=== PATIENT | female | born 1990 | race Caucasian/White ===

== ENCOUNTER → 2016-08-05 | Outpatient (CLI) | payer OTHER ==
--- NOTE | 2016-08-05 17:44 | REP ---
MRI BRAIN WITHOUT CONTRAST: HISTORY: Encephalocele. There are no areas of abnormal signal intensity in the brain. There is no intraparenchymal hemorrhage, infarct, mass or midline shift. The ventricular system is normal in appearance. There is no extracerebral collection. There is no encephalocele. Mucosal thickening is present in the left ethmoid and maxillary sinuses. IMPRESSION: There is no intracranial lesion. Signed by Sheng Machuca MD 08/06/2016 08:30 A
== END ==
LOC: M RAD 14:13
PROVIDERS: ATTEND Specialist
DX: R51 Headache (principal)

== ENCOUNTER → 2016-09-05 | Day surgery (SDC) | payer OTHER ==
[~2016-09-05] VITALS: Ht 170.2 cm; Wt 72.6 kg
[~2016-09-05] MED LIST: ALLE180T33 PO; AZEL0.1S3; CEFD1CAP8 PO; EPINEPHrine 1MG/ML INJ 30ML MD-VIAL As Ordered ONE; EPINEPHrine INJ 1 MG/ML 1ML VIAL/AMP As Ordered ONE; EPINEPHrine INJ 1 MG/ML 1ML VIAL/AMP XX ONE; FIOR1CAP PO; FLON1SPR; GLYCOPYRROLATE INJ 0.2 MG/ML 2 ML VIAL As Ordered ONE; HYDROmorphone HCL 2 MG/ML 1ML VIAL (J1170) As Ordered ONE; IBUPROFEN 800 MG TAB PO SCH; LIDOCAINE 1% MDV 20ML VIAL As Ordered ONE; LIDOCAINE 1% MDV 20ML VIAL XX ONE; LIDOCAINE 2% INJ 100 MG/5 ML SDV (FOR ANES.) As Ordered ONE; LIDOCAINE W/EPINEPHRINE 1% 20ML VIAL As Ordered ONE; LIDOCAINE W/EPINEPHRINE 1% 20ML VIAL XX ONE; LR 1,000 ML IV SCH; MEPERIDINE INJ 25 MG/ML VIAL (J2175) IV PRN; METOCLOPRAMIDE INJ 10MG/2ML VIAL (J2765) IV PRN; MIDAZOLAM INJ 2 MG/2 ML VIAL (J2250) As Ordered ONE; NEOSTIGMINE 1MG/ML 5 ML SYRINGE (J2710) As Ordered ONE; ONDANSETRON 4MG/2ML VIAL (J2405) As Ordered ONE; ONDANSETRON 4MG/2ML VIAL (J2405) IV PRN; OXYMETAZOLINE NASAL SPRAY (AFRIN) As Ordered ONE; OXYMETAZOLINE NASAL SPRAY (AFRIN) XX ONE; PERCOCET 5MG/325MG TAB PO PRN; PROPOFOL 200 MG/20 ML VIAL As Ordered ONE; ROCURONIUM BROMIDE 50 MG/5 ML VIAL As Ordered ONE; SCOPOLAMINE 1.5 MG TRANSDERMAL As Ordered ONE; SCOPOLAMINE 1.5 MG TRANSDERMAL TOP ONE; SEVOFLURANE INHAL SOLN 250 ML BTL As Ordered ONE; TRAZ50TA4 PO; ZOFR4SOL PO; dexameTHASONE 4 MG/ML 1ML VIAL (J1100) As Ordered ONE; fentaNYL 100 MCG/2 ML INJECTION (J3010) IV PRN; fentaNYL 250 MCG/5 ML INJECTION (J3010) As Ordered ONE
[2016-09-05 11:59] LABS: CONTROL LINE UCG INT CTR LINE PRESENT
[2016-09-05 18:20] VITALS: BP 137/88
--- NOTE | 2016-09-07 12:45 | RO ---
DATE OF PROCEDURE: 09/05/2016 PREOPERATIVE DIAGNOSIS: Left chronic maxillary ethmoid sinusitis. Deviated septum. POSTOPERATIVE DIAGNOSIS: Left chronic maxillary ethmoid sinusitis. Deviated septum. PROCEDURE: Septoplasty. Left endoscopic total ethmoidectomy with sphenoidotomy and left maxillary antrostomy resection of nasal polyps. SURGEON: Dr. Austin Barone [employer]ING SUPERVISOR: ANESTHESIA: INDICATIONS: This is a 26 year old with a history of left sided nasal congestion, obstruction and purulent rhinorrhea that has been going on for almost a year. CT scanning demonstrated marked opacification of the left ethmoid complex as well as calcific stippling in that side of the nose. There was also a significant left nasal septal spur. PROCEDURE: Satisfactory general endotracheal anesthesia was administered. Pharyngeal pack placed in the nose, we prepared him for surgery by placing cotton-soaked pledgets with Afrin solution into the nasal cavity bilaterally. 1% Xylocaine with 1:100,000 epinephrine was used to inject the nasal septum. First septoplasty was performed. A Hardeep incision made on the left side of the nasal septum. Mucoperichondrial envelope developed. The junction of the bone and cartilaginous septum was and elevated and an envelope created on the right side of the septum. The perpendicular plate was taken down with the scissors above and scissors below. A vomerine spur was also removed. The caudal cartilage was mobilized by taking a strip of cartilage from the floor of the nose. A central segment of cartilaginous septum was then resected. This allowed the septal contents to return to the midline. The incision was closed using interrupted #5-0 chromic suture. #4-0 chromic sutures were placed in back and forth fashion through the two layers of mucoperichondrium. Next, endoscopic sinus surgery was started with the 0 degrees telescope and the microdebrider as the primary instrument. There was gross polyp disease seen in the left side of the nose both medially and laterally to the middle turbinate. This gross polyp disease was first resected to restore the normal landmarks of the middle meatus. Then using microdebrider the uncinate process was taken down. The ethmoidal bulla was perforated and entered and partially resected. Large thick glue-like green crusts were removed and sent for culture to rule out a fungal sinusitis. The ethmoidal dissection continued by working posteriorly to anteriorly. The ground lamella was perforated and once the posterior ethmoid cells were entered the landmarks of the lamina papyracea and skull base were identified. Dissection continued from posterior anteriorly removing inflammatory tissue as well as large inspissated crust. In the nasofrontal recess, the uncinate process was taken down superiorly. Supraorbital ethmoid cell was opened and agger nasi cell was opened to enlarge this area. Again, some crusts were easily removed from this area and it looked quite clean once this was done. Ethmoid recess polyps were removed. The sphenoid sinus ostia was identified and it was enlarged entering into the posterior ethmoid dissection. At the completion of dissection, the posterior limits of the dissection were approximately 8.5 to 9 cm from the nasal spine. Next, the natural maxillary sinus ostia was identified. It was opened widely using a combination of side biting and up biting forceps. The maxillary sinus mucosa was normal. General pledgets were placed into the ethmoid sinus to allow hemostasis for 5 minutes. When these were removed, there was no significant bleeding. The Propel system was inserted into t he dissected area and expanded in good position. Then, Sinu-Foam was used to fill the interior of the Propel band. Pharyngeal pack was removed and throat suctioned. The patient was awakened, extubated and sent to recovery in satisfactory condition. She will be discharged home with doxycycline 100 mg twice a day and Percocet for pain. She will be seen back in the office in one week.
== END | disposition home or self-care (01) ==
LOC: M SDC 11:17
PROVIDERS: ATTEND Specialist
DX: J32.0 Chronic maxillary sinusitis (principal); J34.2 Deviated nasal septum; J32.2 Chronic ethmoidal sinusitis; J33.0 Polyp of nasal cavity; F41.9 Anxiety disorder, unspecified; Z91.040 Latex allergy status; Z91.041 Radiographic dye allergy status; Z79.899 Other long term (current) drug therapy
CPT/HCPCS: 30520; 31255; 31267; 31288; 84703; 87070; 87075; 87102; 87186; 88300; C2625; J1100; J1170; J2250; J2405; J2710; J3010

== ENCOUNTER 2016-09-10 20:29 | Emergency (ER) | payer OTHER ==
[~2016-09-10 20:29] MED LIST changes: -EPINEPHrine 1MG/ML INJ 30ML MD-VIAL As Ordered ONE; -EPINEPHrine INJ 1 MG/ML 1ML VIAL/AMP As Ordered ONE; -EPINEPHrine INJ 1 MG/ML 1ML VIAL/AMP XX ONE; -GLYCOPYRROLATE INJ 0.2 MG/ML 2 ML VIAL As Ordered ONE; -HYDROmorphone HCL 2 MG/ML 1ML VIAL (J1170) As Ordered ONE; -IBUPROFEN 800 MG TAB PO SCH; -LIDOCAINE 1% MDV 20ML VIAL As Ordered ONE; -LIDOCAINE 1% MDV 20ML VIAL XX ONE; -LIDOCAINE 2% INJ 100 MG/5 ML SDV (FOR ANES.) As Ordered ONE; -LIDOCAINE W/EPINEPHRINE 1% 20ML VIAL As Ordered ONE; -LIDOCAINE W/EPINEPHRINE 1% 20ML VIAL XX ONE; -LR 1,000 ML IV SCH; -MEPERIDINE INJ 25 MG/ML VIAL (J2175) IV PRN; -METOCLOPRAMIDE INJ 10MG/2ML VIAL (J2765) IV PRN; -MIDAZOLAM INJ 2 MG/2 ML VIAL (J2250) As Ordered ONE; -NEOSTIGMINE 1MG/ML 5 ML SYRINGE (J2710) As Ordered ONE; -ONDANSETRON 4MG/2ML VIAL (J2405) As Ordered ONE; -ONDANSETRON 4MG/2ML VIAL (J2405) IV PRN; -OXYMETAZOLINE NASAL SPRAY (AFRIN) As Ordered ONE; -OXYMETAZOLINE NASAL SPRAY (AFRIN) XX ONE; -PERCOCET 5MG/325MG TAB PO PRN; -PROPOFOL 200 MG/20 ML VIAL As Ordered ONE; -ROCURONIUM BROMIDE 50 MG/5 ML VIAL As Ordered ONE; -SCOPOLAMINE 1.5 MG TRANSDERMAL As Ordered ONE; -SCOPOLAMINE 1.5 MG TRANSDERMAL TOP ONE; -SEVOFLURANE INHAL SOLN 250 ML BTL As Ordered ONE; -dexameTHASONE 4 MG/ML 1ML VIAL (J1100) As Ordered ONE; -fentaNYL 100 MCG/2 ML INJECTION (J3010) IV PRN; -fentaNYL 250 MCG/5 ML INJECTION (J3010) As Ordered ONE
[2016-09-10] MEDS ORDERED: MAGNESIUM CITRATE 300 ML BTL As Ordered ONE (22:22)
[2016-09-10] MEDS ORDERED: GLYCERIN ADULT SUPP As Ordered ONE (22:22)
--- NOTE | 2016-09-10 22:28 | EDDOCDS ---
Physician Documentation [facility] Name: Amparo Casey Age: 26 yrs Sex: Female : 1990 Arrival Date: 09/10/2016 Time: 20:29 Bed I5 / M5 Private MD: Mariana Dumont A Disposition: 09/10/16 22:16 Discharged to Home/Self Care. Impression: Constipation, Generalized abdominal pain. - Condition is Stable. - Discharge Instructions: Abdominal Pain, Adult, Constipation, Adult. - Medication Reconciliation, Local Pharmacy Hours form. - Follow up: Mariana Dumont; When: Call to arrange an appointment; Reason: Recheck today's complaints, Continuance of care. - Problem is new. - Symptoms are unchanged. Historical: - Allergies: Latex; IV Dye; IODINEIODINE CONTAINING; - Home Meds: 1. Miralax 17 gram Oral pwpk 1 packet once daily 2. Dulcolax (bisacodyl) 10 mg Rectal supp 1 suppository once daily 3. Ex-Lax Maximum Strength 25 mg oral tab 2 tabs once daily - PMHx: none; - PSHx: Sinus Surgery; - Social history: Smoking status: Patient states was never smoker of tobacco. No barriers to communication noted, The patient speaks fluent Setswana, Speaks appropriately for age. - Family history: Not pertinent. - : The pt / caregiver states he / she is not on anticoagulants. Home medication list is obtained from the patient. - Exposure Risk Screening:: None identified. Vital Signs: 09/10 20:31 BP 145 / 87; Pulse 107; Resp 16; Temp 97.8(O); Pulse Ox 100% on R/A; Weight 73.48 kg / lr2 162 lbs (R); Height 5 ft. 7 in. (170.18 cm) (R); Pain 6/10; 22:21 BP 130 / 74; Pulse 100; Resp 18; Temp 99.6; Pulse Ox 99% ; ajs 20:31 Body Mass Index 25.37 (73.48 kg, 170.18 cm) lr2 MDM: 22:15 Glycerin (Adult) Suppository 2 supp MD once; please given to go home ordered. mo1 22:15 Magnesium Citrate Liquid 300 ml PO once; Dispense home with pt. ordered. mo1 Administered Medications: 22:26 Drug: Glycerin (Adult) 2 supp [glycerin (adult) rectal suppository (2 supp)] Route: MD; kas2 22:26 Drug: Magnesium Citrate 300 ml [magnesium citrate oral solution (300 mL)] Route: PO; kas2 Signatures: Zenon Obrien, RN RN mlb1 Zenon Prater PA PA mo1 Marily Hammer RN RN kas2 MTDD
--- NOTE | 2016-09-10 22:28 | EDDOCDS ---
Nurse's Notes [facility] Name: Amparo Casey Age: 26 yrs Sex: Female : 1990 Arrival Date: 09/10/2016 Time: 20:29 Bed I5 / M5 Private MD: Mariana Dumont A Diagnosis: Constipation;Generalized abdominal pain Presentation: 09/10 20:35 Presenting complaint: Patient states: Sinus last , no BM since last Friday mlb1 reports abdominal pain and increased pain when trying to have a BM. Risk factors: the patient reports no vaginal bleeding. Adult Sepsis Screening: The patient does not have new or worsening altered mentation. Patient's respiratory rate is less than 22. Systolic blood pressure is greater than 100. Patient has a qSOFA score of 0- Negative Sepsis Screen. Suicide/Homicide risk assessment- the patient denies having any suicidal and/or homicidal ideations and does not present with any other emotional, behavioral or mental health complaints. Status: The patient is a dependent. Transition of care: patient was not received from another setting of care. 20:35 Acuity: MAIKOL Level 4 mlb1 20:35 Method Of Arrival: Walkin/Carried/Asstd mlb1 Triage Assessment: 20:40 General: Appears in no apparent distress, comfortable, Behavior is appropriate for age, mlb1 cooperative. Pain: Location: right lower quadrant and left lower quadrant Pain currently is 5 out of 10 on a pain scale. 22:27 Pt Declines HIV testing. kas2 Historical: - Allergies: Latex; IV Dye; IODINEIODINE CONTAINING; - Home Meds: 1. Miralax 17 gram Oral pwpk 1 packet once daily 2. Dulcolax (bisacodyl) 10 mg Rectal supp 1 suppository once daily 3. Ex-Lax Maximum Strength 25 mg oral tab 2 tabs once daily - PMHx: none; - PSHx: Sinus Surgery; - Social history: Smoking status: Patient states was never smoker of tobacco. No barriers to communication noted, The patient speaks fluent Lithuanian, Speaks appropriately for age. - Family history: Not pertinent. - : The pt / caregiver states he / she is not on anticoagulants. Home medication list is obtained from the patient. - Exposure Risk Screening:: None identified. Screenin:09 Screening information is obtained from the patient. Fall risk: No risks identified. kas2 Assistance ADL's: requires no assistance with activities of daily living. Abuse/DV Screen: The patient / caregiver reports he/she is: not in a situation that causes fear, pain or injury. Nutritional screening: No deficits noted. Advance Directives: Currently, there is no health care proxy. There is no active DNR order. There is no living will. There is no Power of Ham Smoker. home support is adequate. Assessment: 21:30 General: Appears in no apparent distress, uncomfortable, well nourished, well groomed, kas2 Behavior is appropriate for age, cooperative. Pain: Location: abdomen and left lower quadrant and right lower quadrant Pain currently is 8 out of 10 on a pain scale. Neurological: Level of Consciousness is awake, alert, Oriented to person, place, time. Cardiovascular: Rhythm is regular. Respiratory: Airway is patent Respiratory effort is even, unlabored, Respiratory pattern is regular, symmetrical, Breath sounds are clear bilaterally. GI: Abdomen is flat, non- distended Bowel sounds present X 4 quads. Abd is soft and non tender X 4 quads. Derm: Skin is intact, Skin is dry, Skin is pink, warm & dry. Skin temperature is warm. 22:26 General: Appears in no apparent distress, Behavior is appropriate for age, cooperative. kas2 Pain: Location: abdomen and left lower quadrant and right lower quadrant Pain currently is 4 out of 10 on a pain scale. Neurological: Level of Consciousness is awake, alert, Oriented to person, place, time. Cardiovascular: Rhythm is regular. Respiratory: Airway is patent Respiratory effort is even, unlabored, Respiratory pattern is regular, symmetrical. GI: Abdomen is flat, non- distended. Derm: Skin is intact, Skin is dry, Skin is pink, warm & dry. Skin temperature is warm. Vital Signs: 20:31 BP 145 / 87; Pulse 107; Resp 16; Temp 97.8(O); Pulse Ox 100% on R/A; Weight 73.48 kg lr2 (R); Height 5 ft. 7 in. (170.18 cm) (R); Pain 6/10; 22:21 BP 130 / 74; Pulse 100; Resp 18; Temp 99.6; Pulse Ox 99% ; ajs 20:31 Body Mass Index 25.37 (73.48 kg, 170.18 cm) lr2 Vitals: 20:31 Log In Time: September 10, 2016 at 20:12. lr2 ED Course: 20:30 Patient visited by Gisele Donald. lr2 20:30 Patient moved to Waiting lr2 20:34 Mariana Dumont is Private Physician. lr2 20:34 Patient moved to Pre RCE lr2 20:35 Patient visited by Zenon Obrien RN. mlb1 20:38 Triage Initiated mlb1 21:17 Patient moved to Triage 2 ms18 21:29 Zenon Prater PA is PHCP. mo1 21:29 Brooks Carney MD is Attending Physician. mo1 21:42 Patient visited by Zenon Prater PA. mo1 21:48 Patient moved to I5 / M5 [facility] 22:09 No IV's were initiated during this patient's visit. Assisted Provider with fecal kas2 impaction. 22:10 Patient visited by Marily Hammer RN. kas2 22:16 Mariana Dumont is Referral Physician. mo1 22:22 Patient visited by Adrianna Horne. [facility] 22:28 The patient / caregiver is instructed regarding the plan of care and ED course. kas2 Administered Medications: 22:26 Drug: Glycerin (Adult) 2 supp [glycerin (adult) rectal suppository (2 supp)] Route: IA; kas2 22:26 Drug: Magnesium Citrate 300 ml [magnesium citrate oral solution (300 mL)] Route: PO; kas2 Order Results: There are currently no results for this order. Outcome: 22:16 Discharge ordered by Provider. mo1 22:27 Discharge Assessment: patient administered narcotics - no. The following High Risk [facility] Discharge criteria are identified: None. Discharged to home ambulatory, with significant other. Condition: good Condition: stable Condition: improved. No special radiology studies were completed. Property :Personal belongings accompany Pt. 22:28 Patient left the ED. [facility] Signatures: Amparo Broderick RN RN [facility] Zenon Obrien RN RN [facility] Adrianna Horne Michael, PA PA mo1 Margaux Hammer RN RN ms18 Marily Hammer RN RN kas2 Gisele Donald lr2 MTDD
--- NOTE | 2016-09-12 23:29 | EDDOCDS ---
Nurse's Notes [facility] Name: Amparo Casey Age: 26 yrs Sex: Female : 1990 Arrival Date: 09/10/2016 Time: 20:29 Bed I5 / M5 Private MD: Mariana Dumont A Diagnosis: Constipation;Generalized abdominal pain Presentation: 09/10 20:35 Presenting complaint: Patient states: Sinus last , no BM since last Friday mlb1 reports abdominal pain and increased pain when trying to have a BM. Risk factors: the patient reports no vaginal bleeding. Adult Sepsis Screening: The patient does not have new or worsening altered mentation. Patient's respiratory rate is less than 22. Systolic blood pressure is greater than 100. Patient has a qSOFA score of 0- Negative Sepsis Screen. Suicide/Homicide risk assessment- the patient denies having any suicidal and/or homicidal ideations and does not present with any other emotional, behavioral or mental health complaints. Status: The patient is a dependent. Transition of care: patient was not received from another setting of care. 20:35 Acuity: MAIKOL Level 4 mlb1 20:35 Method Of Arrival: Walkin/Carried/Asstd mlb1 Triage Assessment: 20:40 General: Appears in no apparent distress, comfortable, Behavior is appropriate for age, mlb1 cooperative. Pain: Location: right lower quadrant and left lower quadrant Pain currently is 5 out of 10 on a pain scale. 22:27 Pt Declines HIV testing. kas2 Historical: - Allergies: Latex; IV Dye; IODINEIODINE CONTAINING; - Home Meds: 1. Miralax 17 gram Oral pwpk 1 packet once daily 2. Dulcolax (bisacodyl) 10 mg Rectal supp 1 suppository once daily 3. Ex-Lax Maximum Strength 25 mg oral tab 2 tabs once daily - PMHx: none; - PSHx: Sinus Surgery; - Social history: Smoking status: Patient states was never smoker of tobacco. No barriers to communication noted, The patient speaks fluent Khmer, Speaks appropriately for age. - Family history: Not pertinent. - : The pt / caregiver states he / she is not on anticoagulants. Home medication list is obtained from the patient. - Exposure Risk Screening:: None identified. Screenin:09 Screening information is obtained from the patient. Fall risk: No risks identified. kas2 Assistance ADL's: requires no assistance with activities of daily living. Abuse/DV Screen: The patient / caregiver reports he/she is: not in a situation that causes fear, pain or injury. Nutritional screening: No deficits noted. Advance Directives: Currently, there is no health care proxy. There is no active DNR order. There is no living will. There is no Power of Button Breaker Operator. home support is adequate. Assessment: 21:30 General: Appears in no apparent distress, uncomfortable, well nourished, well groomed, kas2 Behavior is appropriate for age, cooperative. Pain: Location: abdomen and left lower quadrant and right lower quadrant Pain currently is 8 out of 10 on a pain scale. Neurological: Level of Consciousness is awake, alert, Oriented to person, place, time. Cardiovascular: Rhythm is regular. Respiratory: Airway is patent Respiratory effort is even, unlabored, Respiratory pattern is regular, symmetrical, Breath sounds are clear bilaterally. GI: Abdomen is flat, non- distended Bowel sounds present X 4 quads. Abd is soft and non tender X 4 quads. Derm: Skin is intact, Skin is dry, Skin is pink, warm & dry. Skin temperature is warm. 22:26 General: Appears in no apparent distress, Behavior is appropriate for age, cooperative. kas2 Pain: Location: abdomen and left lower quadrant and right lower quadrant Pain currently is 4 out of 10 on a pain scale. Neurological: Level of Consciousness is awake, alert, Oriented to person, place, time. Cardiovascular: Rhythm is regular. Respiratory: Airway is patent Respiratory effort is even, unlabored, Respiratory pattern is regular, symmetrical. GI: Abdomen is flat, non- distended. Derm: Skin is intact, Skin is dry, Skin is pink, warm & dry. Skin temperature is warm. Vital Signs: 20:31 BP 145 / 87; Pulse 107; Resp 16; Temp 97.8(O); Pulse Ox 100% on R/A; Weight 73.48 kg lr2 (R); Height 5 ft. 7 in. (170.18 cm) (R); Pain 6/10; 22:21 BP 130 / 74; Pulse 100; Resp 18; Temp 99.6; Pulse Ox 99% ; ajs 20:31 Body Mass Index 25.37 (73.48 kg, 170.18 cm) lr2 Vitals: 20:31 Log In Time: September 10, 2016 at 20:12. lr2 ED Course: 20:30 Patient visited by Gisele Donald. lr2 20:30 Patient moved to Waiting lr2 20:34 Mariana Dumont is Private Physician. lr2 20:34 Patient moved to Pre RCE lr2 20:35 Patient visited by Zenon Obrien RN. mlb1 20:38 Triage Initiated mlb1 21:17 Patient moved to Triage 2 ms18 21:29 Zenon Prater PA is PHCP. mo1 21:29 Brooks Carney MD is Attending Physician. mo1 21:42 Patient visited by Zenon Prater PA. mo1 21:48 Patient moved to I5 / M5 [facility] 22:09 No IV's were initiated during this patient's visit. Assisted Provider with fecal kas2 impaction. 22:10 Patient visited by Marily Hammer RN. kas2 22:16 Mariana Dumont is Referral Physician. mo1 22:22 Patient visited by Adrianna Horne. ajs 22:28 The patient / caregiver is instructed regarding the plan of care and ED course. kas2 22:30 Patient visited by Macarena Sesay, Reg. ks16 22:30 [facility] Payment Agreement was scanned into [employer] and attached to record. [facility] 09/11 13:55 T-Sheet-- Draft Copy was scanned into [employer] and attached to record. gb Administered Medications: 09/10 22:26 Drug: Glycerin (Adult) 2 supp [glycerin (adult) rectal suppository (2 supp)] Route: MN; kas2 22:26 Drug: Magnesium Citrate 300 ml [magnesium citrate oral solution (300 mL)] Route: PO; kas2 Order Results: There are currently no results for this order. Outcome: 22:16 Discharge ordered by Provider. mo1 22:27 Discharge Assessment: patient administered narcotics - no. The following High Risk [facility] Discharge criteria are identified: None. Discharged to home ambulatory, with significant other. Condition: good Condition: stable Condition: improved. No special radiology studies were completed. Property :Personal belongings accompany Pt. 22:28 Patient left the ED. [facility] Signatures: Amparo Broderick RN RN mcp Barnhardt, Gloria, Reg Reg gb Widen, Zenon B, RN RN mlb1 Adrianna Horne Michael, PA PA mo1 Margaux Hammer RN RN ms18 Macarena Sesay, [facility] ks16 Marily Hammer RN RN erica2 Gisele Donald2 Chart Complete MTDD
--- NOTE | 2016-09-12 23:29 | EDDOCDS ---
Physician Documentation [facility] Name: Amparo Casey Age: 26 yrs Sex: Female : 1990 Arrival Date: 09/10/2016 Time: 20:29 Bed I5 / M5 Private MD: Mariana Dumont A Disposition: 09/10/16 22:16 Discharged to Home/Self Care. Impression: Constipation, Generalized abdominal pain. - Condition is Stable. - Discharge Instructions: Abdominal Pain, Adult, Constipation, Adult. - Medication Reconciliation, Local Pharmacy Hours form. - Family Work Release (09/10/16 22:29). mo1 - Follow up: Mariana Dumont; When: Call to arrange an appointment; Reason: Recheck today's complaints, Continuance of care. - Problem is new. - Symptoms are unchanged. Historical: - Allergies: Latex; IV Dye; IODINEIODINE CONTAINING; - Home Meds: 1. Miralax 17 gram Oral pwpk 1 packet once daily 2. Dulcolax (bisacodyl) 10 mg Rectal supp 1 suppository once daily 3. Ex-Lax Maximum Strength 25 mg oral tab 2 tabs once daily - PMHx: none; - PSHx: Sinus Surgery; - Social history: Smoking status: Patient states was never smoker of tobacco. No barriers to communication noted, The patient speaks fluent Cape Verdean, Speaks appropriately for age. - Family history: Not pertinent. - : The pt / caregiver states he / she is not on anticoagulants. Home medication list is obtained from the patient. - Exposure Risk Screening:: None identified. Vital Signs: 09/10 20:31 BP 145 / 87; Pulse 107; Resp 16; Temp 97.8(O); Pulse Ox 100% on R/A; Weight 73.48 kg / lr2 162 lbs (R); Height 5 ft. 7 in. (170.18 cm) (R); Pain 6/10; 22:21 BP 130 / 74; Pulse 100; Resp 18; Temp 99.6; Pulse Ox 99% ; ajs 20:31 Body Mass Index 25.37 (73.48 kg, 170.18 cm) lr2 MDM: 22:15 Glycerin (Adult) Suppository 2 supp OH once; please given to go home ordered. mo1 22:15 Magnesium Citrate Liquid 300 ml PO once; Dispense home with pt. ordered. mo1 22:30 [facility] Payment Agreement was scanned into [employer] and attached to record. va: Financial registration complete. [facility] 09/11 13:55 T-Sheet-- Draft Copy was scanned into [employer] and attached to record. gb Administered Medications: 09/10 22:26 Drug: Glycerin (Adult) 2 supp [glycerin (adult) rectal suppository (2 supp)] Route: OH; kas2 22:26 Drug: Magnesium Citrate 300 ml [magnesium citrate oral solution (300 mL)] Route: PO; kas2 Signatures: Tessa Carranza, Reg Reg gb Zenon Obrien, RN RN mlb1 Zenon Prater PA PA mo1 Macarena Sesay, Reg Reg ks16 Marily Hammer,RN RN kas2 The chart was reviewed and I authenticate all verbal orders and agree with the evaluation and treatment provided.Attachments: :30 [facility] Payment Agreement 09/11 13:55 T-Sheet-- Draft Copy gb Chart Complete MTDD
--- NOTE | 2016-09-12 23:29 | EDDOCDS ---
Physician Documentation [facility] Name: Amparo Casey Age: 26 yrs Sex: Female : 1990 Arrival Date: 09/10/2016 Time: 20:29 Bed I5 / M5 Private MD: Mariana Dumont A Disposition: 09/10/16 22:16 Discharged to Home/Self Care. Impression: Constipation, Generalized abdominal pain. - Condition is Stable. - Discharge Instructions: Abdominal Pain, Adult, Constipation, Adult. - Medication Reconciliation, Local Pharmacy Hours form. - Family Work Release (09/10/16 22:29). mo1 - Follow up: Mariana Dumont; When: Call to arrange an appointment; Reason: Recheck today's complaints, Continuance of care. - Problem is new. - Symptoms are unchanged. Historical: - Allergies: Latex; IV Dye; IODINEIODINE CONTAINING; - Home Meds: 1. Miralax 17 gram Oral pwpk 1 packet once daily 2. Dulcolax (bisacodyl) 10 mg Rectal supp 1 suppository once daily 3. Ex-Lax Maximum Strength 25 mg oral tab 2 tabs once daily - PMHx: none; - PSHx: Sinus Surgery; - Social history: Smoking status: Patient states was never smoker of tobacco. No barriers to communication noted, The patient speaks fluent [place]ron[place], Speaks appropriately for age. - Family history: Not pertinent. - : The pt / caregiver states he / she is not on anticoagulants. Home medication list is obtained from the patient. - Exposure Risk Screening:: None identified. Vital Signs: 09/10 20:31 BP 145 / 87; Pulse 107; Resp 16; Temp 97.8(O); Pulse Ox 100% on R/A; Weight 73.48 kg / lr2 162 lbs (R); Height 5 ft. 7 in. (170.18 cm) (R); Pain 6/10; 22:21 BP 130 / 74; Pulse 100; Resp 18; Temp 99.6; Pulse Ox 99% ; ajs 20:31 Body Mass Index 25.37 (73.48 kg, 170.18 cm) lr2 MDM: 22:15 Glycerin (Adult) Suppository 2 supp ND once; please given to go home ordered. mo1 22:15 Magnesium Citrate Liquid 300 ml PO once; Dispense home with pt. ordered. mo1 22:30 [facility] Payment Agreement was scanned into [employer] and attached to record. vt: Financial registration complete. [facility] 09/11 13:55 T-Sheet-- Draft Copy was scanned into [employer] and attached to record. gb Administered Medications: 09/10 22:26 Drug: Glycerin (Adult) 2 supp [glycerin (adult) rectal suppository (2 supp)] Route: ND; kas2 22:26 Drug: Magnesium Citrate 300 ml [magnesium citrate oral solution (300 mL)] Route: PO; kas2 Signatures: Tessa Carranza, Reg Reg gb Zenon Obrien, RN RN [id number] Zenon Prater PA PA mo1 Macarena Sesay, Reg Reg [id number] Marily Hammer,RN RN kas2 The chart was reviewed and I authenticate all verbal orders and agree with the evaluation and treatment provided.Attachments: :30 [facility] Payment Agreement 09/11 13:55 T-Sheet-- Draft Copy gb Chart Complete MTDD
== END 2016-09-10 22:28 | disposition home or self-care (01) ==
LOC: M ED 20:29
DX: K59.00 Constipation, unspecified (principal); R11.2 Nausea with vomiting, unspecified; Z79.899 Other long term (current) drug therapy; Z91.041 Radiographic dye allergy status; Z88.8 Allergy status to other drugs, medicaments and biological substances; Z91.040 Latex allergy status

== ENCOUNTER 2017-04-15 23:44 | Emergency (ER) | payer OTHER ==
[~2017-04-15] VITALS: Ht 170.2 cm; Wt 70.5 kg
[~2017-04-15 23:44] MED LIST changes: +TRAZ50TA11 PO; -TRAZ50TA4 PO
[2017-04-16] MEDS ORDERED: NS 1,000 ML IV ONE (01:00)
[2017-04-16 01:37] LABS: BASO # 0.1 10^3/uL (0.0-0.2); BASO % 0.8 % (0.0-1.0); EOS # 0.1 10^3/uL (0.0-0.50); EOS % 1.1 % (0.0-3.0); IMMATURE GRANULOCYTE % 0.2 % (0-0); LYMPH # 2.8 10^3/uL (1.5-6.5); LYMPH % 29.9 % (24.0-44.0); MEAN CORPUSCULAR HEMOGLOBIN 28.4 pg (27.0-33.0); MONO # 0.7 10^3/uL (0.0-0.8); MONO % 7.4 % (0.0-5.0); NEUTROPHILS # 5.6 10^3/uL (1.8-7.7); NEUTROPHILS % 60.6 % (36.0-66.0); PLATELET COUNT, AUTOMATED 239 10^3/uL (150-450); RED CELL DISTRIBUTION WIDTH 13.6 % (11.5-14.5); WHITE BLOOD COUNT 9.3 10^3/uL (4.0-10.0)
[2017-04-16 01:42] LABS: CONTROL LINE HCG INT CTR LINE PRESENT
[2017-04-16 01:50] LABS: ALBUMIN 4.3 GM/DL (3.2-5.2); ALBUMIN/GLOBULIN RATIO 1.08 (1.00-1.93); ALKALINE PHOSPHATASE 74 U/L (45-117); ALT/SGPT 17 U/L (12-78); AMYLASE 95 U/L (25-115); ANION GAP 6 MEQ/L (8-16); AST/SGOT 12 U/L (15-37); BILIRUBIN,DIRECT 0.1 MG/DL (0.0-0.2); BILIRUBIN,TOTAL 0.4 MG/DL (0.2-1.0); BLOOD UREA NITROGEN 11 MG/DL (7-18); CALCIUM LEVEL 9.2 MG/DL (8.5-10.1); CARBON DIOXIDE LEVEL 31 MEQ/L (21-32); CHLORIDE LEVEL 101 MEQ/L (98-107); CREATININE FOR GFR 0.86 MG/DL (0.55-1.02); GLOMERULAR FILTRATION RATE > 60.0 (>60); GLUCOSE, FASTING 86 MG/DL (70-105); POTASSIUM SERUM 3.7 MEQ/L (3.5-5.1); SODIUM LEVEL 138 MEQ/L (136-145); TOTAL PROTEIN 8.3 GM/DL (6.4-8.2)
[2017-04-16 02:32] VITALS: BP 126/88
== END 2017-04-16 02:34 | disposition home or self-care (01) ==
LOC: M ED 23:44
DX: E86.9 Volume depletion, unspecified (principal); R55 Syncope and collapse; F41.9 Anxiety disorder, unspecified; G43.909 Migraine, unspecified, not intractable, without status migrainosus; Z79.899 Other long term (current) drug therapy; Z91.040 Latex allergy status; Z91.041 Radiographic dye allergy status

== ENCOUNTER → 2017-08-28 | Outpatient (REF) | payer OTHER ==
[2017-08-29 00:43] LABS: CHLAMYDIA DNA AMPLIFICATION NEGATIVE (NEGATIVE); GC DNA AMPLIFICATION NEGATIVE (NEGATIVE)
== END ==
LOC: M LAB REF 18:10
DX: N76.0 Acute vaginitis (principal)

== ENCOUNTER 2018-03-13 13:46 | Emergency (ER) | payer OTHER ==
[2018-03-13 15:29] LABS: BASO # 0.1 10^3/uL (0.0-0.2); BASO % 1.1 % (0.0-1.0); EOS # 0.3 10^3/uL (0.0-0.50); EOS % 5.8 % (0.0-3.0); HEMATOCRIT 42.9 % (36.0-47.0); HEMOGLOBIN 14.7 g/dl (12.0-15.5); IMMATURE GRANULOCYTE % 0.2 % (0-3.0); LYMPH # 2.4 10^3/uL (1.5-6.5); LYMPH % 42.6 % (24.0-44.0); MEAN CORPUSCULAR HEMOGLOBIN 29.7 pg (27.0-33.0); MEAN CORPUSCULAR HGB CONC 34.3 g/dl (32.0-36.5); MEAN CORPUSCULAR VOLUME 86.7 fl (80.0-96.0); MONO # 0.3 10^3/uL (0.0-0.8); MONO % 6.2 % (0.0-5.0); NEUTROPHILS # 2.4 10^3/uL (1.8-7.7); NEUTROPHILS % 44.1 % (36.0-66.0); PLATELET COUNT, AUTOMATED 274 10^3/uL (150-450); RED BLOOD COUNT 4.95 10^6/uL (4.00-5.40); RED CELL DISTRIBUTION WIDTH 12.2 % (11.5-14.5); WHITE BLOOD COUNT 5.5 10^3/uL (4.0-10.0)
[2018-03-13] MEDS: ONDANSETRON 4 MG ORAL DISINTEGRATING TAB (Q0162 PER 1MG) PO (15:37)
[2018-03-13] MEDS: GI COCKTAIL 50ML BTL(HYOSCYAMINE/MAALOX/LIDOCAINE VISCOUS)(1:3:1) PO (15:37)
[2018-03-13] MEDS: ACETAMINOPHEN 325 MG TAB PO (15:37)
[2018-03-13 15:44] LABS: KETONE, URINE AUTO RFX NEGATIVE (NEGATIVE); NITRITE, URINE AUTO RFX NEGATIVE (NEGATIVE); RBC, URINE AUTO RFX 2 /HPF (0-3); SPECIFIC GRAVITY UR AUTO RFX 1.003 (1.002-1.035); SQUAM EPITHELIAL CELL UR AURFX 1 /HPF (0-6); WBC, URINE AUTO RFX 4 /HPF (0-3)
[2018-03-13 15:58] LABS: ALBUMIN 4.4 GM/DL (3.2-5.2); ALBUMIN/GLOBULIN RATIO 1.02 (1.00-1.93); ALKALINE PHOSPHATASE 58 U/L (45-117); ALT/SGPT 38 U/L (12-78); ANION GAP 8 MEQ/L (8-16); AST/SGOT 40 U/L (7-37); BILIRUBIN,TOTAL 0.4 MG/DL (0.2-1.0); BLOOD UREA NITROGEN 9 MG/DL (7-18); CALCIUM LEVEL 9.1 MG/DL (8.5-10.1); CARBON DIOXIDE LEVEL 28 MEQ/L (21-32); CHLORIDE LEVEL 102 MEQ/L (98-107); CREATININE FOR GFR 0.95 MG/DL (0.55-1.30); GLOMERULAR FILTRATION RATE > 60.0 (>60); GLUCOSE, FASTING 83 MG/DL (70-100); LIPASE 189 U/L (73-393); POTASSIUM SERUM 4.1 MEQ/L (3.5-5.1); SODIUM LEVEL 138 MEQ/L (136-145); TOTAL PROTEIN 8.7 GM/DL (6.4-8.2)
[2018-03-13 16:04] LABS: LEUKOCYTE ESTERASE UR AUTO RFX 1+ (NEGATIVE)
== END 2018-03-13 17:00 | disposition home or self-care (01) ==
LOC: M ED 13:46
DX: R10.11 Right upper quadrant pain (principal); R11.0 Nausea
CPT/HCPCS: Q0162